=== PATIENT | female | born 1955 | race Caucasian/White ===

== ENCOUNTER 2019-07-23 04:58 | Outpatient (CLI) | payer SELFPAY ==
[2019-07-23 09:03] LABS: HEMOGLOBIN A1C 5.7 % (4.5-6.2)
[2019-07-23 09:16] LABS: CHOL/HDL RATIO 3.09 (0.00-4.99)
== END 2019-07-23 23:59 | disposition home or self-care (01) ==
LOC: HW HEART 04:58
DX: Z13.6 Encounter for screening for cardiovascular disorders (principal)
CPT/HCPCS: 36415

== ENCOUNTER 2019-08-13 04:07 | Outpatient (CLI) | payer SELFPAY | END 2019-08-13 23:59 | disposition home or self-care (01) | LOC: HW VAS 04:07 | DX: Z13.6 Encounter for screening for cardiovascular disorders (principal) ==